=== PATIENT | male | born 1995 | race Caucasian/White ===

== ENCOUNTER 2023-04-25 21:35 | Emergency (ER) | payer SELFPAY ==
[~2023-04-25] VITALS: Ht 175.3 cm; Wt 88.5 kg
[2023-04-25 21:53] VITALS: BP_SYST 129; PULSE 68; RESP 18; TEMP 97.2; O2SAT 98
[2023-04-25] MEDS ORDERED: KETOROLAC TROMETHAMINE 15 MG VIAL IM ONE (22:30)
[2023-04-25] MEDS ORDERED: HYDR-3927 PO (22:33)
[2023-04-25 23:06] VITALS: BP_SYST 122; PULSE 74; RESP 18; TEMP 98.7; O2SAT 96
== END 2023-04-25 23:06 | disposition home or self-care (01) ==
LOC: SED 21:35
DX: K08.89 Other specified disorders of teeth and supporting structures (principal); Z79.899 Other long term (current) drug therapy
CPT/HCPCS: 99283; 96372; J1885